=== PATIENT | male | born 1965 | race Asian ===

== ENCOUNTER 2023-12-26 11:43 | Emergency (ER) | payer BC ==
[~2023-12-26] VITALS: Ht 165.1 cm; Wt 68.0 kg
[2023-12-26] MEDS ORDERED: LIDOCAINE HCL 1% 20 ML VIAL ONE (12:16)
[2023-12-26] MEDS: LIDOCAINE HCL 1% 20 ML VIAL IJ ONE (12:17)
[2023-12-26] MEDS ORDERED: CLIN300C3 PO (13:03)
[2023-12-26] MEDS ORDERED: CLINDAMYCIN HCL 300 MG CAPSULE ONE (13:03)
[2023-12-26] MEDS: CLINDAMYCIN HCL 150 MG CAPSULE PO ONE (13:05)
[2023-12-26 13:15] VITALS: BP 135/84; O2SAT 98
== END 2023-12-26 13:15 | disposition home or self-care (01) ==
LOC: ER 11:47
DX: S92.532A Displaced fracture of distal phalanx of left lesser toe(s), initial encounter for closed fracture (principal); Z79.899 Other long term (current) drug therapy; W22.8XXA Striking against or struck by other objects, initial encounter; Y93.53 Activity, golf; Y92.89 Other specified places as the place of occurrence of the external cause; Y99.8 Other external cause status
CPT/HCPCS: 99283; 10060; 73660; J3490; A4606; A4663